=== PATIENT | female | born 1995 | race Caucasian/White ===

== ENCOUNTER 2023-04-22 10:53 | Outpatient (CLI) | payer OTHER | END 2023-04-22 12:19 | disposition home or self-care (01) | LOC: NST 10:53 | PROVIDERS: ATTEND Obstetrics & Gynecology Maternal & Fetal Medicine | DX: Z34.83 Encounter for supervision of other normal pregnancy, third trimester (principal) ==

== ENCOUNTER 2023-04-25 09:25 | Outpatient (CLI) | payer OTHER | END 2023-04-25 10:29 | disposition home or self-care (01) | LOC: NST 09:25 | PROVIDERS: ATTEND Obstetrics & Gynecology Maternal & Fetal Medicine | DX: Z34.83 Encounter for supervision of other normal pregnancy, third trimester (principal) ==

== ENCOUNTER 2023-04-29 10:11 | Outpatient (CLI) | payer OTHER ==
[2023-04-29] MEDS ORDERED: PRENATABS RX T1 EACH PO (20:01)
[2023-04-29] MEDS ORDERED: DIALYVITE 800-1 EACH PO (20:02)
== END 2023-04-29 10:41 | disposition home or self-care (01) ==
LOC: NST 10:11
PROVIDERS: ATTEND Obstetrics & Gynecology Maternal & Fetal Medicine
DX: Z34.83 Encounter for supervision of other normal pregnancy, third trimester (principal)